=== PATIENT | male | born 1960 | race Two or more races ===

== ENCOUNTER 2020-10-02 11:46 | Emergency (ER) | payer MEDICAID, OTHER ==
[~2020-10-02] VITALS: Ht 172.7 cm; Wt 96.2 kg
[2020-10-02] MEDS ORDERED: cloNIDine HCL 0.1 MG TAB PO ONE (12:45)
[2020-10-02 14:00] VITALS: BP 121/83
[2020-10-04] MEDS ORDERED: IBUP600T28 PO (14:43)
[2020-10-04] MEDS ORDERED: MENTCRE10 EX (14:43)
[2020-10-04] MEDS ORDERED: ACET-1304 PO (14:43)
[2020-10-04] MEDS ORDERED: TERA10CA36 PO (14:43)
[2020-10-04] MEDS ORDERED: ATOR40TA52 PO (14:43)
[2020-10-04] MEDS ORDERED: ARTISOL13 EACHEYE (14:43)
[2020-10-04] MEDS ORDERED: BENA5TAB5 PO (14:43)
[2020-10-04] MEDS ORDERED: GLIP10TA9 PO (14:43)
[2020-10-04] MEDS ORDERED: METF-929 PO (14:43)
[2020-10-04] MEDS ORDERED: ASPI-498 PO (14:43)
[2020-10-04] MEDS ORDERED: ASCO500C49 PO (14:46)
== END 2020-10-02 14:45 | disposition home or self-care (01) ==
LOC: ER 11:46
DX: R33.9 Retention of urine, unspecified (principal); I16.0 Hypertensive urgency; E11.9 Type 2 diabetes mellitus without complications; E78.5 Hyperlipidemia, unspecified
CPT/HCPCS: 51702

== ENCOUNTER 2022-07-09 03:41 | Emergency (ER) | payer MEDICAID ==
[~2022-07-09] VITALS: Ht 172.7 cm; Wt 95.0 kg
[~2022-07-09 03:41] MED LIST: ACET-1304 PO; ARTISOL13 EACHEYE; ASCO500C49 PO; ASPI-498 PO; ATOR40TA52 PO; BENA5TAB9 PO; GLIP10TA9 PO; IBUP600T28 PO; MENTCRE10 EX; METF-929 PO; TERA10CA36 PO
[2022-07-09 04:22] VITALS: BP 129/79
[2022-07-09 04:47] LABS: Urine Bacteria NONE SEEN /hpf (None Seen); Urine Blood Negative /uL (Negative); Urine Specific Gravity 1.006 (1.001-1.035); Urine WBC <1 /hpf (0 - 3)
== END 2022-07-09 05:45 | disposition home or self-care (01) ==
LOC: ER 03:41
DX: R33.9 Retention of urine, unspecified (principal); E11.65 Type 2 diabetes mellitus with hyperglycemia
CPT/HCPCS: 51702; 81001